=== PATIENT | male | born 1965 | race Caucasian/White ===

== ENCOUNTER 2016-11-07 15:30 | Emergency (ER) | payer OTHER ==
[~2016-11-07] VITALS: Ht 180.3 cm; Wt 81.6 kg
[2016-11-07] MEDS ORDERED: LEXA1TAB2 PO (15:46)
[2016-11-07] MEDS ORDERED: KETOROLAC 30 MG/ML VIAL (J1885) IV ONE (16:15)
[2016-11-07] MEDS ORDERED: GASTROGRAFIN SOLUTION 30ML (Q9963) PO ONE ×2 (16:30)
[2016-11-07 16:54] LABS: BASO # 0.1 K/mm3 (0.0-0.2); BASO % 0.8 % (0.0-1.0); EOS # 0.3 K/mm3 (0.0-0.50); EOS % 4.1 % (0.0-3.0); LARGE UNSTAINED CELL # 0.1 K/mm3 (0.0-0.4); LARGE UNSTAINED CELL % 1.5 % (0.0-4.0); LYMPH # 2.8 K/mm3 (1.5-4.5); LYMPH % 36.7 % (24.0-44.0); MEAN CORPUSCULAR HEMOGLOBIN 33.1 pg (27.0-33.0); MEAN CORPUSCULAR HGB CONC 34.5 g/dl (32.0-36.5); MEAN CORPUSCULAR VOLUME 95.8 fl (80.0-96.0); MONO # 0.4 K/mm3 (0.0-0.8); MONO % 5.1 % (0.0-5.0); NEUTROPHILS # 3.9 K/mm3 (1.8-7.7); NEUTROPHILS % 51.7 % (36.0-66.0); PLATELET COUNT, AUTOMATED 246 k/mm3 (150-450); RED CELL DISTRIBUTION WIDTH 12.9 % (11.5-14.5); WHITE BLOOD COUNT 7.5 K/mm3 (4.0-10.0)
[2016-11-07 16:59] LABS: ANION GAP 9 MEQ/L (8-16); BLOOD UREA NITROGEN 14 MG/DL (7-18); CALCIUM LEVEL 8.3 MG/DL (8.5-10.1); CARBON DIOXIDE LEVEL 25 MEQ/L (21-32); CHLORIDE LEVEL 106 MEQ/L (98-107); GLOMERULAR FILTRATION RATE > 60.0 (>56); GLUCOSE, FASTING 93 MG/DL (70-105); POTASSIUM SERUM 4.1 MEQ/L (3.5-5.1); SODIUM LEVEL 140 MEQ/L (136-145)
--- NOTE | 2016-11-07 18:23 | REP ---
CT of the abdomen pelvis without IV or bowel contrast: Comparison is 2012. The visualized lung dupont are unremarkable. The unenhanced hepatic parenchyma demonstrates several hepatic cyst anteriorly in the liver, not significantly changed. The hepatic parenchyma is otherwise unremarkable. The gallbladder, pancreas and spleen are unremarkable and unchanged. There are no renal calculi. There are no ureteral or bladder calculi. There is no hydronephrosis. There is a right renal 2.8 cm lower pole cyst, not not present previously. The abdominal aorta, bowel and mesentery are unremarkable. Pelvis: The appendix has a normal appearance. There is no ascites or adenopathy. There are is diverticulosis of the sigmoid colon. There is no diverticulitis. The bladder is nondistended and cannot be evaluated. Impression: There are no renal, ureteral or bladder calculi. No hydronephrosis. The appendix has a normal appearance. Right renal cyst. There is opaque ingested material in the stomach. Otherwise, negative CT of the abdomen pelvis. Signed by Nirmal Anderson MD 11/07/2016 06:15 P
[2016-11-07 18:56] VITALS: BP 119/73
== END 2016-11-07 18:57 | disposition home or self-care (01) ==
LOC: M ED 16:24
DX: R10.31 Right lower quadrant pain (principal); Z91.013 Allergy to seafood; F17.210 Nicotine dependence, cigarettes, uncomplicated; Z79.899 Other long term (current) drug therapy; F32.9 Major depressive disorder, single episode, unspecified; F41.9 Anxiety disorder, unspecified
CPT/HCPCS: 36415; 74176; 80048; 81001; 85025; 86140; 96374; 99283; J1885; Q9963